=== PATIENT | female | born 2000 | race Caucasian/White ===

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

== ENCOUNTER 2022-01-14 12:53 | Outpatient (CLI) | payer OTHER ==
[~2022-01-14 12:53] MED LIST changes: +DUI500 PO
== END 2022-01-14 12:56 | disposition home or self-care (01) ==
LOC: RAD 12:53
PROVIDERS: ATTEND Orthopaedic Surgery
DX: M79.642 Pain in left hand (principal)